=== PATIENT | female | born 1980 | race Caucasian/White ===

== ENCOUNTER → 2018-02-19 | Outpatient (CLI) | payer OTHER ==
[~2018-02-19] MED LIST: ALBU8.5H IH; DESO1TAB16 PO
[2018-02-19 11:02] LABS: PLATELET COUNT, AUTOMATED 254 K/uL (150-450)
== END ==
LOC: LAB 10:37
PROVIDERS: ATTEND Emergency Medicine
DX: R10.9 Unspecified abdominal pain (principal)
CPT/HCPCS: 36415; 81001; 82040; 82247; 82310; 82374; 82435; 82565; 82947; 84075; 84132; 84155; 84295; 84450; 84460; 84520; 85025

== ENCOUNTER → 2018-04-28 | Outpatient (CLI) | payer OTHER ==
[2018-04-28 08:32] LABS: PLATELET COUNT, AUTOMATED 261 K/uL (150-450)
== END ==
LOC: LAB 08:08
PROVIDERS: ATTEND Emergency Medicine
DX: Z00.00 Encounter for general adult medical examination without abnormal findings (principal)
CPT/HCPCS: 36415; 82040; 82247; 82310; 82374; 82435; 82465; 82565; 82947; 83036; 83718; 84075; 84132; 84155; 84295; 84450; 84460; 84478; 84520; 85025

== ENCOUNTER → 2018-05-05 | Outpatient (CLI) | payer OTHER ==
--- NOTE | 2018-05-06 11:21 | RADIOLOGY IMAGING REPORT ---
FACILITY: [facility] - [place] PATIENT NAME: CONSTANTINO RAYA : [id number] MR: [id number] V: [id number] EXAM DATE: [id number] ORDERING PHYSICIAN: DARIEN CALDWELL TECHNOLOGIST: Evelin Lafleur PROCEDURE:BILATERAL DIGITAL SCREENING MAMMOGRAM WITH CAD ASSISTED INTERPRETATION & 3D TOMOSYNTHESIS COMPARISON:Baseline. INDICATIONS:SCREENING FINDINGS: The breast tissue is heterogeneously dense. Small fat containing lymph node in the Left axillary tail has a benign appearance. No suspicious mass, architectural distortion or suspicious microcalcifications are seen. DIAGNOSTIC CATEGORY 2--BENIGN FINDING. RECOMMENDATIONS: ROUTINE MAMMOGRAM AND CLINICAL EVALUATION IN 1 YEAR. IMPRESSION: BIRADS 2: Benign finding. Dictated by: Asael Clifford M.D. on 05/06/2018 at 11:09 Transcribed by: IGOR on 05/06/2018 at 11:14 Approved by: Asael Clifford M.D. on 05/06/2018 at 11:20 [facility]
== END ==
LOC: MAMO 00:29
PROVIDERS: ATTEND Emergency Medicine
DX: Z12.31 Encounter for screening mammogram for malignant neoplasm of breast (principal)
CPT/HCPCS: 77063; 77067

== ENCOUNTER → 2018-05-07 | Outpatient (CLI) | payer OTHER | LOC: LAB 09:39 | PROVIDERS: ATTEND Emergency Medicine | DX: R79.89 Other specified abnormal findings of blood chemistry (principal) | CPT/HCPCS: 36415; 82306; 82310; 83970 ==

== ENCOUNTER 2018-05-15 09:35 | Outpatient (RCR) | payer OTHER ==
--- NOTE | 2018-05-16 16:00 | RADIOLOGY IMAGING REPORT ---
FACILITY: [facility] - [place] PATIENT NAME: Hailey Mckinney : 1980 MR: [id number] V: [id number] EXAM DATE: ORDERING PHYSICIAN: DARIEN CALDWELL TECHNOLOGIST: Location: [facility] [place] Patient: Hailey Mckinney : 1980 Visit/Account:[id number] Date of Sevice: 05/16/2018 Renal ultrasound Indication: Elevated creatinine Comparison: None available Findings: Right kidney measures 10.2 x 4.0 x 5.5 cm in cc, AP, and transverse dimensions respectively. RI: 0.5 1 Left kidney measures 10.2 x 5.3 x 5.4 cm in cc, AP, and transverse dimensions respectively. RI: 0.47 There is normal echogenicity of the bilateral kidneys. No evidence of hydronephrosis or nephrolithiasis. Bilateral ureteral jets were seen. Urinary bladder imaging was negative and there is no significant post-void residual. Visualized abdominal aorta and IVC are unremarkable. Incidental note is made of cholelithiasis without gallbladder wall thickening or pericholecystic flui d IMPRESSION: 1. Normal Renal ultrasound. 2. Incidental note of cholelithiasis Report Dictated By: Surendra López MD at 05/16/2018 3:53 PM Report E-Signed By: Surendra López MD at 05/16/2018 3:56 PM WSN:[id number]
== END 2018-05-16 18:00 | disposition home or self-care (01) ==
LOC: US 09:35 → EDSTATUS 05-16 09:35 → US 05-16 18:00
PROVIDERS: ATTEND Emergency Medicine
DX: R79.89 Other specified abnormal findings of blood chemistry (principal)
CPT/HCPCS: 76705; 81001

== ENCOUNTER → 2019-05-04 | Outpatient (CLI) | payer OTHER ==
[2019-05-04 09:20] LABS: PLATELET COUNT, AUTOMATED 190 K/uL (150-450)
[2019-05-04 10:12] LABS: LDL CHOLESTEROL 138 mg/dl
== END ==
LOC: LAB 07:59
PROVIDERS: ATTEND Emergency Medicine
DX: Z00.00 Encounter for general adult medical examination without abnormal findings (principal)
CPT/HCPCS: 36415; 82040; 82247; 82310; 82374; 82435; 82465; 82565; 82947; 83036; 83718; 84075; 84132; 84155; 84295; 84443; 84450; 84460; 84478; 84520; 85025